=== PATIENT | female | born 1960 | race Caucasian/White ===

== ENCOUNTER 2022-08-05 06:44 | Day surgery (SDC) | payer BC, MEDICARE ==
[2022-08-05] MEDS ORDERED: Propofol 200 MG/20 ML SDV ONE (07:13)
[2022-08-05] MEDS ORDERED: Midazolam 1 MG/ML 2 ML SDV ONE (07:13)
[2022-08-05] MEDS ORDERED: fentaNYL 50 MCG/ML SDV ONE (07:13)
[2022-08-05] MEDS ORDERED: Sodium Chloride 0.9% 1,000 ML IV SCH (07:45)
== END 2022-08-05 09:49 | disposition home or self-care (01) ==
LOC: JP.SDS 06:44
PROVIDERS: ATTEND Surgery
DX: Z12.11 Encounter for screening for malignant neoplasm of colon (principal); E78.00 Pure hypercholesterolemia, unspecified; Z86.010 Personal history of colon polyps; Z79.899 Other long term (current) drug therapy; Z88.0 Allergy status to penicillin; Z88.1 Allergy status to other antibiotic agents
CPT/HCPCS: 45378; J2250; J2704; J3010; J7030